=== PATIENT | male | born 1970 | race Caucasian/White ===

== ENCOUNTER 2016-05-19 11:02 | Observation (INO) | payer OTHER ==
[2016-05-19] MEDS ORDERED: Sodium Chloride 0.9% 1,000 ML PRIMARY IV ONE (11:28)
[2016-05-19] MEDS ORDERED: LORazepam 2 MG/1 ML VIAL IVP ONE (11:32)
[2016-05-19] MEDS ORDERED: Sodium Chloride 0.9% 1,000 ML, Magnesium Sulfate 2gm (Premix) 50 ML with Multivitamin I... IV ONE ×5 (11:32)
[2016-05-19] MEDS ORDERED: Sodium Chloride 0.9% 1,000 ML with Multivitamin Inj 10 ML, Thiamine Inj 100 MG, Folic A... IV ONE ×5 (11:45)
--- NOTE | 2016-05-19 11:46 | EKG ---
[address] [address] Measurements Intervals [place] Rate: 51 P: 84 MD: 174 QRS: 62 QRSD: 106 T: 59 QT: 445 QTc: 422 Interpretive Statements SINUS BRADYCARDIA INTERPRETATION BASED ON A DEFAULT AGE OF 40 YEARS No previous ECG available for comparison Electronically Signed On 05-19-16 13:45:29 MST by Jose Luis Silva MD [email or web address]
[2016-05-19] MEDS: NORMAL SALINE 10 ML SYRINGE FLUSH IVP PRN ×2 (12:00→12:12)
[2016-05-19 12:09] LABS: BASOPHILS # (AUTO) 0.03 10*3/UL; BASOPHILS % (AUTO) 0.4 % (0-1); EOSINOPHILS % (AUTO) 0.4 % (0-8); HEMATOCRIT 47.9 % (42.0-52.0); HEMOGLOBIN 17.1 g/dL (14.0-18.0); IMM GRAN % (AUTO) 0.1 % (0-5); IMM GRAN# (AUTO) 0.01 10*3/UL; LYMPHOCYTES # (AUTO) 1.55 10*3/uL; LYMPHOCYTES % (AUTO) 21.1 % (10-50); MEAN CORPUSCULAR HEMOGLOBIN 33.6 PG (27-31); MEAN CORPUSCULAR HGB CONC 35.7 g/dL (33-37); MEAN PLATELET VOLUME 9.6 FL (7.4-12.2); MONOCYTES # (AUTO) 0.45 10*3/UL (0.3-0.8); MONOCYTES % (AUTO) 6.1 % (5-15); NEUTROPHILS # (AUTO) 5.27 10*3/UL; NEUTROPHILS % (AUTO) 71.9 % (50-80); RDW COEFFICIENT OF VARIATION 14.1 % (11.5-14.5); RED BLOOD COUNT 5.09 10^6/uL (4.70-6.10); WHITE BLOOD COUNT 7.34 10^3/uL (4.8-10.8)
[2016-05-19 12:15] LABS: PLATELET MORPHOLOGY COMMENT NORMAL MORPHOLOGY (NORM)
[2016-05-19 12:18] LABS: LACTATE 1.5 MMOL/L (0.70-2.10); MAGNESIUM 2.2 mg/dL (1.6-2.4)
[2016-05-19 12:19] LABS: ASPARTATE AMINO TRANSFERASE 23 IU/L (21-57); BILIRUBIN,TOTAL 0.6 mg/dL (0.3-1.2); BLOOD UREA NITROGEN 14 mg/dL (7-22); CALCIUM 9.6 mg/dL (8.7-10.7); CHLORIDE 107 meq/L (98-112); EST GLOMERULAR FILTRATION > 60 (>60 ml/min/1.73m(2)); GLUCOSE 119 mg/dL (78-110); POTASSIUM 4.3 meq/L (3.8-5.2); SODIUM 142 meq/L (135-145); TOTAL PROTEIN 7.6 g/dL (6.1-8.0)
[2016-05-19 12:24] LABS: SERUM ALCOHOL < 10 mg/dL (0-10)
[2016-05-19 12:40] LABS: BILIRUBIN,URINE NEGATIVE (NEG); CLARITY,URINE CLEAR (CLEAR); GLUCOSE, URINE (UA) NEGATIVE (NEG); LEUKOCYTE ESTERASE ,URINE NEGATIVE (NEG); NITRATE,URINE NEGATIVE (NEG); OCCULT BLOOD,URINE MODERATE (NEG); PROTEIN,URINE NEGATIVE (NEG); UROBILINOGEN,URINE 0.2 EU/dL (0.2)
[2016-05-19 12:55] LABS: URINE SAMPLE TYPE CLEAN CATCH URINE
[2016-05-19 12:56] LABS: BACTERIA,URINE RARE; CANNABINOID SCREEN,URINE NEGATIVE (NEG); COCAINE SCREEN NEGATIVE (NEG); METHAMPHETAMINES SCREEN,URINE NEGATIVE (NEG); SQUAMOUS EPITHELIAL CELL,UR RARE; URINE SPECIFIC GRAVITY - MAN 1.005
--- NOTE | 2016-05-19 13:05 | DI ---
CT HEAD SCAN WITHOUT IV CONTRAST, 05/19/2016 11:28 AM : Clinical History: Altered level of consciousness. Previous Exam: None at this facility. Scans are obtained from the foramen magnum to the vertex without IV contrast. The 4th, 3rd, and lateral ventricles are of normal size, shape, position, and contour. There are no abnormal areas of increased or decreased density. There is no intracranial hemorrhage. Bone window evaluation is normal. The paranasal sinuses are normal. READING: Normal non contrast CT head scan for age.
--- NOTE | 2016-05-19 13:45 | PDOC ---
Neuro Symptoms / Deficit HPI - General Chief Complaint: Neurological Complaints Stated Complaint: ACUTE CONFUSION UNK ETIOLOGY Date Seen by Provider: 05/19/16 Time Seen by Provider: 11:07 Source: POSITIVE: Patient, Spouse Exam Limitations: POSITIVE: No limitations Nurse's Notes Reviewed & Considered: Yes - History of Present Illness Initial Comments: The patient is a 45-year-old male who is brought to the emergency room by his and a family friend. states that at 8 AM this morning she left her to run some errands and at that time the states that the patient appeared "perfectly fine". At 9:30 AM the patient's daughter called the patient and she felt that the patient sounded confused and would not answer questions appropriately. The patient's was contacted and she went immediately home. She found the patient to be quite confused and to be amnestic of recent events in his life. He also could not accurately give today' s date or name the president. He was very anxious and agitated and distraught. brought the patient to the emergency room. Past medical indicates that the patient smokes at least a pack of cigarettes per day and the states that the patient drinks alcohol daily, but has had nothing to drink since the day before yesterday. He is on no medications. No known neurological, cardiopulmonary, GI or , or other illnesses. He did complain of a left sided headache. Body Location Affected: REPORTS: Head, Other (Amnesia, confusion, agitation as above) Timing: REPORTS: Abrupt Duration: 1-3 hours (Onset probably 2-3 hours APIARIST) Severity: Moderate Quality: REPORTS: "Pain" (Patient does complain of some left-sided head discomfort) Context: DENIES: Insect Bite, Tick Bite, Falling Injury, Head Injury, Other Character of Deficit(s): REPORTS: General(diffuse) (Global amnesia). DENIES: Right, Left, RUE, RLE, LUE, LLE, New Weakness, Facial, Ascending, Altered Sensation, Vision Problems, Impaired Speech, Impaired Swallowing, Difficult, Unable, Decreased Ability to Walk, Decr. Ability to Stand, Falling, Weak, Off Balance, Cannot Walk, Cannot Stand, Cannot Sit, Bed-Ridden, Other Associated Symptoms: REPORTS: Headache (Left-sided), Confused, Agitated, Trouble Concentrating, Trouble Thinking, Other (Amnestic of recent events, primarily). DENIES: Fever, Chills, Sweating, Chest Pain, Neck Pain, Back Pain, Fainting, Seizure, Altered Mental Status, Disoriented, Decreased Responsiveness , Unresponsive Usual Ability to Walk/Stand: REPORTS: Walks w/o Assistance. DENIES: Cane Use, Walker Use, Walks only w/ Assistance, Stands for Transfers, Unable to Walk, Bed Ridden, Unable to Sit, Other Usual Cognition: REPORTS: Alert & Oriented x3 Similar Symptoms Previously: No Recently seen/treated/hospitalized: No Any Prior Injuries Related to Current Complaint?: No - Patient Home Medications Home Medications: Home Medications NK [No Home Medications Reported] 05/19/16 - Patient Allergies Allergies/Adverse Reactions: Allergies Allergy/AdvReac Type Severity Reaction Status Date / Time No Known Allergies Allergy Verified 05/19/16 11:15 Past Medical History - heen HEENT History: Denies History Cardiovascular History: Denies History Respiratory History: Denies History Gastrointestinal History: Denies History Genitourinary History: Denies History Endocrine History: Denies History Musculoskeletal History: Other (please comment) Prosthesis or Implant: No Additional Musculoskeletal History: LT KNEE TENDON REPAIR. LEFT INDEX FINGER AND KNUCKLE REPAIR Neurological History: Denies History Blood Disorders: Denies History Psychiatric History: Denies History Male Reproductive History: Denies History Cancer History: Denies History In Past Year Been Physically Harmed or Verbally Threatened: No History of MDRO: No Tobacco Use: Current Every Day Smoker Alcohol Use: Heavy Substance Use Type: None Previous Surgical History: Yes Type / Date of Surgery: KNEE, FINGER, KNUCKLE Anesthesia Reactions: No Significant Family History: No pertinent family hx Past Medical History Reviewed: Reviewed - No Changes ROS - Limitations ROS Limitations: Clinical Condition (Patient not able to answer many questions because of amnesia and confusion. Quite agitated.), Mental Impairment (As above ) Constitution: REPORTS: Denies Symptoms Cardiovascular: REPORTS: Denies Cardiac Symptoms Respiratory: REPORTS: Denies Resp Symptoms Neurological: REPORTS: Headache (Left-sided), Other (Confusion and amnesia) Gastrointestinal: REPORTS: Denies GI Symptoms Endocrine: REPORTS: Denies Symptoms Musculoskeletal: REPORTS: Denies MS Symptoms Genitourinary: REPORTS: Denies Symptoms Eyes: REPORTS: Denies Symptoms ENT: REPORTS: Denies Symptoms Skin: REPORTS: Denies Skin Symptoms Lympathic: REPORTS: Denies Lympathic Symptoms Immunologic: POSITIVE: Denies Symptoms Psychiatric: POSITIVE: Confusion, Anxiety Neuro Symptoms / Deficit Exam - General Appearance General Appearance: POSITIVE: Other (Patient very anxious and tearful. Appears frustrated at his inability to remember recent events. He can identify his . Confused to time and cannot recall date, president, or recent activities. ) - HEENT HEENT: POSITIVE: Head Inspection Nml, Eyes Inspection Nml, Ears Inspection Nml, Nose Inspection Nml, Oral/Dental Inspect. Nml, Pharynx Inspect. Nml, PERRL, EOMI - Pupil Size Pupil Size: 4 mm: Bilateral (PERRLA) - Neuro / Psych Higher Functions: POSITIVE: Normal Speech, Disoriented to Person, Disoriented to Place, Disoriented to Time, Withdraws to Pain. NEGATIVE: Oriented to Person , Oriented to Place, Oriented to Time, Normal Cognition, Appropriate Mood (. Anxious), Appropriate Affect (. Anxious and tearful), Speech Abnormalities, Cognition Abnormalities, Abnml Response to Command, No Response to Command, Eyes Open to Command, Slow Response to Command, Inapp Response to Command, Expressive Aphasia, Receptive Aphasia, Abnml Response to Pain, Flexor to Pain, Extensor to Pain, No Response to Pain, Dysarthria Cranial Nerves: POSITIVE: Normal As Tested, No Evidence of Acute CVA Cerebellar: POSITIVE: Normal As Tested Peripheral Exam: POSITIVE: Sensation Normal, Motor Normal, Reflexes Normal - Neck Neck: POSITIVE: Supple, Non-Tender, No Carotid Bruit - Respiratory Respiratory: POSITIVE: No Respiratory Distress, Breath Sounds Normal - Cardiovascular Cardiovascular: POSITIVE: Regular Rate & Rhythm, Heart Sounds Normal Peripheral Pulses: Radial (R): 2+, Radial (L): 2+ - Abdomen Abdomen: Soft: (All Quadrants), Normal Bowel Sounds: (All Quadrants), Denies Tenderness: (All Quadrants), No Splenomegaly: (All Quadrants), No Hepatomegaly: (All Quadrants), No Guarding: (All Quadrants), No Rebound: (All Quadrants), No Palpable Pulse: (All Quadrants), No [place]pabale Mass: (All Quadrants), No Distention: (All Quadrants), No Rigidity: (All Quadrants) - Skin Skin: POSITIVE: Intact, Normal For Race, Warm, Dry, No Rash - Extremities Extremity: Non-Tender: (All Extremities), Normal ROM: (All Extremities), Normal Inspection: (All Extremities) Neuro Symptom/Deficit Progress - Results Reviewed by me Xrays/CTs/US Reviewed by me: Yes Discussed with Radiologist: Yes Radiology Findings: CT scan of head without contrast normal Lab Results Reviewed: Yes Lab Results:: Laboratory Results 05/19/16 Range/Units 12:05 WBC 7.34 (4.8-10.8) 10^3/uL RBC 5.09 (4.70-6.10) 10^6/uL Hgb 17.1 (14.0-18.0) g/dL Hct 47.9 (42.0-52.0) % MCV 94.1 H (80-90) FL MCH 33.6 H (27-31) PG MCHC 35.7 (33-37) g/dL RDW Std Deviation 47.7 (39-50) fL RDW Coeff of Junaid 14.1 (11.5-14.5) % Plt Count 224 (140-350) 10*3/uL MPV 9.6 (7.4-12.2) FL Immature Gran % (Auto) 0.1 (0-5) % Neut % (Auto) 71.9 (50-80) % Lymph % (Auto) 21.1 (10-50) % [place] % (Auto) 6.1 (5-15) % Eos % (Auto) 0.4 (0-8) % Baso % (Auto) 0.4 (0-1) % Immature Gran # (Auto) 0.01 10*3/UL Neut # (Auto) 5.27 10*3/UL Lymph # (Auto) 1.55 10*3/uL [place] # (Auto) 0.45 (0.3-0.8) 10*3/UL Eos # (Auto) 0.03 10*3/UL Baso # (Auto) 0.03 10*3/UL WBC Morphology Comment Normal morphology (NORM) Plt Morphology Comment Normal morphology (NORM) RBC Morph Comment Normal morphology (NORM) Sodium 142 (135-145) meq/L Potassium 4.3 (3.8-5.2) meq/L Chloride 107 (98-112) meq/L Carbon Dioxide 23 (23-33) meq/L Anion Gap 12 (5-20) BUN 14 (7-22) mg/dL Creatinine 1.0 (0.70-1.50) mg/dL Estimated GFR > 60 (>60 ml/min/1.73m(2)) BUN/Creatinine Ratio 14.00 (6-20) Glucose 119 H (78-110) mg/dL Calculated Osmolality 295.0 H (267-292) mOsm/kg Lactic Acid 1.5 (0.70-2.10) MMOL/L Calcium 9.6 (8.7-10.7) mg/dL Magnesium 2.2 (1.6-2.4) mg/dL Total Bilirubin 0.6 (0.3-1.2) mg/dL AST 23 (21-57) IU/L ALT 26 (21-72) IU/L Alkaline Phosphatase 39 (38-126) IU/L Total Protein 7.6 (6.1-8.0) g/dL Albumin 4.7 (3.5-4.8) g/dL Globulin 3.0 (2.50-4.10) g/dL Albumin/Globulin Ratio 1.50 (1.3-2.0) mg/g Ur Collection Type Clean catch urine Urine Color Yellow Urine Clarity Clear (CLEAR) Urine pH 5.0 (5.0-8.5) Ur Specific [place] <=1.005 (1.005-1.030) U Specif Grav (Refrac) 1.005 Urine Protein Negative (NEG) mg/dl Urine Glucose (UA) Negative (NEG) mg/dL Urine Ketones Negative (NEG) Urine Occult Blood Moderate H (NEG) Urine Nitrate Negative (NEG) Urine Bilirubin Negative (NEG) Urine Urobilinogen 0.2 (0.2) EU/dL Ur Leukocyte Esterase Negative (NEG) Urine RBC 1-3 (NONE) /hpf Urine WBC 1-3 (NONE) Ur Squamous Epith Cells Rare (NONE) Ur Renal Epithelial Cell None (NONE) Urine Crystals None Urine Bacteria Rare (NONE) Urine Casts None (NONE) Urine Mucus None (NONE) Urine Trichomonas None (NONE) Urine Yeast None (NONE) Ur Culture Indicated? Culture not set Urine Opiates Screen Negative (NEG) Ur Buprenorphine Negative (NEG) Ur Oxycodone Screen Negative (NEG) Urine Methadone Screen Negative (NEG) Ur Propoxyphene Screen Negative (NEG) Barbiturate Screen Negative (NEG) U Tricyclic Antidepress Negative (NEG) Phencyclidine Screen Negative (NEG) Amphetamines Screen Negative (NEG) U Methamphetamines Scrn Negative (NEG) Benzodiazepines Screen Negative (NEG) Cocaine Screen Negative (NEG) U Marijuana (THC) Screen Negative (NEG) Serum Alcohol < 10 (0-10) mg/dL EKG Interpreted/Reviewed By Me:: Yes (normal except for sinus bradycardia of 51/ m) EKG Interpretation:: POSITIVE: Normal Sinus Rhythm, Normal Intervals, Normal [place], Normal QRS, Normal ST/T. NEGATIVE: Normal Rate (Sinus bradycardia, 51/m) - Patient's Progress Pain Medication Addressed: POSITIVE: Yes (Tylenol 1 g by mouth given for headache) School/Work Release Addressed: POSITIVE: Not Applicable Re-Examine Time:: 12:45 Re-Examine Comment: Patient given 2 mg of Ativan IV and he was started on a banana bag of 1 L normal saline, 2 g magnesium sulfate, 100 mg thiamine and 1 mg of folic acid. At time of reevaluation patient is much better. He is essentially alert and oriented and his amnesia seems to have largely resolved. His headache is less. He is not anxious at this time. Discussed diagnosis of transient global amnesia with some possible alcohol withdrawal. Admission recommended. Status: POSITIVE: Improved, Re-Examined, Pain Relieved Antibiotics Given: No CVA/Syncope Quality Measure Initiative: POSITIVE: EKG - Consult Consult (If Yes, Name of Consulting MD & Time Called): Yes (Dr. Blanton, hospitalist , 1300) Consulting MD will see pt:: POSITIVE: [place] Admit Patient Care Time - Estimated PCT Patient Care Time (In Minutes): 55 Vital Signs - Recent Vital Signs Vital Signs: Vital Signs (Last 8 hours) Temp Pulse Resp BP Pulse Ox 05/19/16 11:05 96.8 F 68 16 146/99 98 - VS Reviewed Vital Signs Reviewed: Yes Discharge Clinical Impression: Transient global amnesia, Alcohol abuse Discharge Disposition: Admit to Inpatient Condition: Serious Date Decision to Admit to Inpatient: 05/19/16 Time Decision to Admit to Inpatient: 12:50
[2016-05-19] MEDS ORDERED: NORMAL SALINE 10 ML SYRINGE FLUSH IVP PRN (13:56)
[2016-05-19] MEDS: ACETAMINOPHEN 500 MG TABLET PO ONE ×2 (14:23→15:18)
--- NOTE | 2016-05-19 15:21 | PDOC ---
History and Physical - History of Present Illness Date and Time of Service: 05/19/2016, 1515 Chief Complaint: I can't remember History of Present Illness: This very pleasant 45 year male who was found by his to be confused and altered. He is brought in for evaluation to the emergency room. A head CT scan was negative for any acute bleeding. The patient does not had anything like this happen before and he states to me that the last thing he can remember actually occurred Tuesday when he was working with one of his relatives on a project. He states that he was in the garage when his found him today. He thought that he was working on that project. He reportedly drinks about a sixpack of beer or more per day per his history and has never had any alcohol withdrawal problems. It was no loss of bowel or bladder and no weakness of muscle strength or sensation differences on one side of the body or the other. No evidence of her reports of slurred speech. He does have a family history of stroke. He smokes cigars daily. EKG was revealing for sinus bradycardia but was otherwise normal. He denied any other symptoms associated with this presentation, other than a headache which happened on the left side and seemed to migrate over the right side but is now gone. He has not been able to regain any memory through this past Tuesday, but seems to be feeling a little better now. He had questions about hematuria in his urine as he had a moderate amount of blood on his urinalysis. He apparently had the same problem 2 years ago after being kicked by a bull. 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 Past Medical History Medical History: None Surgical History: Had some tendons repaired. Pertinent Family History: Significant for stroke and for coronary artery disease. His mother apparently suffered many TIAs. 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 Smokes cigars daily and drinks about a sixpack of beer or more daily. Tobacco Use: Current Every Day Smoker Do you dip or chew tobacco: Yes Substance Use Type: None Alcohol Use: Heavy Medication / Allergies Home Medications: Home Medications Medication Instructions Recorded Confirmed Type NK [No Home Medications Reported] 05/19/16 05/19/16 History Allergies/Adverse Reactions: Allergies Allergy/AdvReac Type Severity Reaction Status Date / Time No Known Allergies Allergy Verified 05/19/16 11:15 Review of Systems - Constitutional Constitutional: REPORTS: Negative System Review - Respiratory Respiratory: REPORTS: Negative System Review - Cardiovascular Cardiovascular: REPORTS: Negative System Review - Gastrointestinal Gastrointestinal / Abdominal: REPORTS: Negative System Review - Genitourinary Genitourinary: REPORTS: Hematuria (2 years ago attributed to an injury in which he was kicked by a bull. Had moderate hematuria on urinalysis today.) - Musculoskeletal Musculoskeletal: REPORTS: Joint Pain - Shoulders - Hematlogic / Lymphatic Hematologic / Lymphatic: REPORTS: Negative System Review - Neurological Neurologic: REPORTS: Headache (Occasionally. He states that his often tells him when he has a headache. He denies migraine headaches.) - Psychiatric Psychiatric: DENIES: Anhedonia, Anxiety, Depressed, Hopelessness, Hospitalization, Negative System Review, Other, Panic, Sadness, See HPI, Suicidality, Tearfullness Exam - Vitals Vital Signs: Vital Signs Temperature 97.6 F Temperature Source Temporal Artery Scan Pulse Rate [Pulse Oximeter] 67 Pulse Rate 66 Respiratory Rate 16 Blood Pressure [Left Arm] 130/86 Blood Pressure [Right Arm] 146/99 Blood Pressure 137/93 Pulse Ox 96 Oxygen Delivery Method Room Air Height 6 ft 2 in Weight 170 lb 11.2 oz - General General Appearance: POSITIVE: No Acute Distress, Cooperative - Head Head Exam: POSITIVE: Normal Inspection, Normocephalic, Atraumatic - Eye Eye Exam: POSITIVE: No Scleral Icterus - ENT ENT Exam: POSITIVE: Mucous Membranes Moist - Neck Neck Exam: POSITIVE: Normal Inspection, No Tenderness, No Thyromegaly - Respiratory Respiratory Exam: POSITIVE: Clear to Auscultation - Bilaterally, Breathing Non Labored, Normal to Percussion and Palpation - Cardiovascular Cardiovascular Exam: POSITIVE: RRR, No Murmur, No Clicks, No Gallops, No Rubs, No JVD - GI/Abdominal GI/Abdominal Exam: POSITIVE: Normal Bowel Sounds, Non Tender, Non Distended, Soft - Rectal Rectal Exam: POSITIVE: Deferred - External Exam: POSITIVE: Deferred Exam: POSITIVE: Deferred - Extremities Extremities Exam: POSITIVE: No Clubbing Present, No Edema Present, No Cyanosis Present Additional Extremities Exam Details: Palpation of the shoulder does not cause any pain. - Back Back Exam: POSITIVE: Normal Inspection, No CVA Tenderness - Neurological Neurological Exam: POSITIVE: Alert, Oriented x 3, No Facial Droop, Speech Intact / Clear, Moves All Extremities Equally - Psychiatric Psychiatric Exam: POSITIVE: Normal Affect, Normal Mood - Integumentary Integumentary Exam: POSITIVE: Normal Color, Warm, Dry, Intact Results - Labs CBC and BMP: 05/19/16 12:05 05/19/16 12:05 Labs - Last 24 Hours: Laboratory Results 05/19/16 Range/Units 12:05 WBC 7.34 (4.8-10.8) 10^3/uL RBC 5.09 (4.70-6.10) 10^6/uL Hgb 17.1 (14.0-18.0) g/dL Hct 47.9 (42.0-52.0) % MCV 94.1 H (80-90) FL MCH 33.6 H (27-31) PG MCHC 35.7 (33-37) g/dL RDW Std Deviation 47.7 (39-50) fL RDW Coeff of Junaid 14.1 (11.5-14.5) % Plt Count 224 (140-350) 10*3/uL MPV 9.6 (7.4-12.2) FL Immature Gran % (Auto) 0.1 (0-5) % Neut % (Auto) 71.9 (50-80) % Lymph % (Auto) 21.1 (10-50) % [place] % (Auto) 6.1 (5-15) % Eos % (Auto) 0.4 (0-8) % Baso % (Auto) 0.4 (0-1) % Immature Gran # (Auto) 0.01 10*3/UL Neut # (Auto) 5.27 10*3/UL Lymph # (Auto) 1.55 10*3/uL [place] # (Auto) 0.45 (0.3-0.8) 10*3/UL Eos # (Auto) 0.03 10*3/UL Baso # (Auto) 0.03 10*3/UL WBC Morphology Comment Normal morphology (NORM) Plt Morphology Comment Normal morphology (NORM) RBC Morph Comment Normal morphology (NORM) Sodium 142 (135-145) meq/L Potassium 4.3 (3.8-5.2) meq/L Chloride 107 (98-112) meq/L Carbon Dioxide 23 (23-33) meq/L Anion Gap 12 (5-20) BUN 14 (7-22) mg/dL Creatinine 1.0 (0.70-1.50) mg/dL Estimated GFR > 60 (>60 ml/min/1.73m(2)) BUN/Creatinine Ratio 14.00 (6-20) Glucose 119 H (78-110) mg/dL Calculated Osmolality 295.0 H (267-292) mOsm/kg Lactic Acid 1.5 (0.70-2.10) MMOL/L Calcium 9.6 (8.7-10.7) mg/dL Magnesium 2.2 (1.6-2.4) mg/dL Total Bilirubin 0.6 (0.3-1.2) mg/dL AST 23 (21-57) IU/L ALT 26 (21-72) IU/L Alkaline Phosphatase 39 (38-126) IU/L Total Protein 7.6 (6.1-8.0) g/dL Albumin 4.7 (3.5-4.8) g/dL Globulin 3.0 (2.50-4.10) g/dL Albumin/Globulin Ratio 1.50 (1.3-2.0) mg/g Ur Collection Type Clean catch urine Urine Color Yellow Urine Clarity Clear (CLEAR) Urine pH 5.0 (5.0-8.5) Ur Specific [place] <=1.005 (1.005-1.030) U Specif Grav (Refrac) 1.005 Urine Protein Negative (NEG) mg/dl Urine Glucose (UA) Negative (NEG) mg/dL Urine Ketones Negative (NEG) Urine Occult Blood Moderate H (NEG) Urine Nitrate Negative (NEG) Urine Bilirubin Negative (NEG) Urine Urobilinogen 0.2 (0.2) EU/dL Ur Leukocyte Esterase Negative (NEG) Urine RBC 1-3 (NONE) /hpf Urine WBC 1-3 (NONE) Ur Squamous Epith Cells Rare (NONE) Ur Renal Epithelial Cell None (NONE) Urine Crystals None Urine Bacteria Rare (NONE) Urine Casts None (NONE) Urine Mucus None (NONE) Urine Trichomonas None (NONE) Urine Yeast None (NONE) Ur Culture Indicated? Culture not set Urine Opiates Screen Negative (NEG) Ur Buprenorphine Negative (NEG) Ur Oxycodone Screen Negative (NEG) Urine Methadone Screen Negative (NEG) Ur Propoxyphene Screen Negative (NEG) Barbiturate Screen Negative (NEG) U Tricyclic Antidepress Negative (NEG) Phencyclidine Screen Negative (NEG) Amphetamines Screen Negative (NEG) U Methamphetamines Scrn Negative (NEG) Benzodiazepines Screen Negative (NEG) Cocaine Screen Negative (NEG) U Marijuana (THC) Screen Negative (NEG) Serum Alcohol < 10 (0-10) mg/dL - EKG Data -: EKG Interpreted by Me Rate: Bradycardia EKG Shows Normal: Sinus Rhythm Assessment and Plan - Patient Problems (1) Transient global amnesia Current Visit: Yes Status: Acute (2) Hematuria Current Visit: Yes Status: Acute - Assessment / Plan Additional Assessment/Plan Details: Admit the patient for observation. There is significant culture see around transient global amnesia as to whether or not there could be association with increased risk of stroke, but I think it prudent to do a transient ischemic attack workup, complete with MRI of the brain and MRA of the head and neck, and echocardiogram, check thyroid status, and cholesterol status. If anything found in the above, treat. Start an aspirin today. The patient on my exam, does not appear to be in alcohol withdrawal. That certainly a risk, but his symptoms are quite consistent with transient global amnesia in that he's had memory loss since at least Tuesday. There were no reported seizures and no symptoms of alcohol withdrawal seizure noted today. He is not agitated. Given that the patient smokes cigars daily, start nicotine replacement here, but I also think with the moderate hematuria he should have cystoscopy in the office with a urologist to make sure there is no evidence of bladder cancer. We will schedule an appointment for the patient. I discussed above plan with the patient and he agreed. His was not available for discussion at the time of this history and physical, but I will try to fill her in when we are able to discuss further.
[2016-05-19] MEDS ORDERED: NICOTINE 2 MG GUM BUCCAL PRN (18:46)
[2016-05-19] MEDS ORDERED: LORazepam Inj(ETOH withdrawal) 2 MG/ML VIAL IVP PRN (20:23)
[2016-05-20 06:49] VITALS: RESP 18
--- NOTE | 2016-05-20 08:41 | DI ---
XR EYE FOREIGN BODY,05/20/2016 7:51 AM: Clinical History: Screening for foreign body. Previous Exam: None at this facility. Findings: AP and lateral views of the orbits are obtained, and demonstrate normal paranasal sinuses. There is n o evidence of metallic foreign body. Impression: No evidence of intraorbital metallic foreign body.
--- NOTE | 2016-05-20 08:48 | DI ---
MRI MRA HEAD W/O CN,05/20/2016 7:00 AM: Clinical History: Transient global amnesia. Previous Exam: None at this facility. Findings: Multiplanar MR images are obtained through the brain following a 3-D [id number] protocol, and dem onstrates a normal [place]. The basilar artery is intact. The vertebral arteries are not well seen. The right posterior communicating artery is diminutive. The distal internal carotid arteries are normal. Middle cerebral arteries are also normal. The anteri or cerebral arteries are unremarkable. There is no evidence of aneurysmal dilation of the anterior co mmunicating artery. The left vertebral artery is dominant and the right vertebral artery is diminutive. Impression: Normal MRA [place].
[2016-05-20] MEDS ORDERED: ASPIRIN 325 MG TABLET PO SCH (09:00)
--- NOTE | 2016-05-20 09:08 | DI ---
MRI BRAIN W/O CN,05/20/2016 7:00 AM: Clinical History: Transient global amnesia. Previous Exam: None at this facility. 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 The ventricles and other CSF containing spaces are normal and symmetric. There is no mass, hemorrhage or midline shift. The internal auditory canals are normal and symmetric. The major vascular flow voids are unremarkable. There is no abnormal FLAIR signal. The midline structures are unremarkable. 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 The sellar and suprasellar region are unremarkable. There is no evidence of Chiari malformation. The upper cervical spine is unremarkable. The intraorbital structures are unremarkable. There is no abnormally restricted diffusion. Impression: No acute intracranial pathology.
--- NOTE | 2016-05-20 09:23 | DI ---
MRI MRA NECK W/O CN,05/20/2016 7:00 AM: Clinical History: Transient global amnesia. Previous Exam: None at this facility. Findings: Multiplanar MR images are obtained through the neck following a 2-D [id number], and demonstrate s ome mild low signal within the left carotid bulb. There is also some mild low signal within the right carotid bulb. The vertebral arteries are unremarkable. The left vertebral artery is dominant. There is approximately 50% stenosis of both carotid bulbs. The internal carotid arteries demonstrate normal course and caliber. There is a normal three-vessel arch. Impression: Approximately 50% stenosis of the carotid bulbs bilaterally.
[2016-05-20 10:26] LABS: FREE T4 (FREE THYROXINE) 1.14 ng/dL (0.93-1.71)
[2016-05-20 11:23] VITALS: TEMP 97.2
--- NOTE | 2016-05-20 12:01 | DCSUMMARY ---
Hospitalization Summary Admit Date: 05/19/16 Discharge Date: 05/20/16 Primary Diagnosis:: carotid artery disease and transient global amnesia Hospital Course: This very pleasant but cantankerous 45-year-old male who presented here yesterday had symptoms of altered mental status that had come on transiently. He did not have any other symptoms of stroke and no focal findings otherwise. He was admitted for evaluation and we did an MRI of the head which showed no evidence of stroke. Head CT scan was negative for acute bleed. An MRA of the head was negative. An MRA of the neck was positive for 50% carotid artery disease bilaterally. The patient does smoke and he does drink alcohol. Ultimately he had one episode earlier this month that was very similar but not as long lasting. Because of this, we are somewhat concerned that there could be an underlying seizure as well, and have arranged a referral to a neurologist with a question of "does this patient have seizure?" This is the reason for referral with [facility] The patient also had microscopic hematuria in his urine. 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 Given his smoking history, I felt it would be best to get him set up with a urologist for an office cystoscopy to evaluate further for potential bladder cancer. Given his alcohol use, which is quite significant at a 6 pack or so per day, his MCV and MCH were both elevated so I did vitamin B12, folate levels, and a vitamin D level. His vitamin D was low and he'll replace that outside of the hospital. His vitamin B12 was low and I recommended a B complex vitamin daily. I will place him on a full strength aspirin daily. I recommended that he have cholesterol screening done at his earliest convenience and we have arranged for primary care follow-up. Given the constellation of findings and plan above, the patient and his agree that this seems reasonable and the patient would like to go home. He is reported to me that he wants to go smoke. Today, no completes of chest pain, shortness breath, nausea or vomiting, muscle weakness, or memory problems. Assessment and Plan: 1. As per discharge assessments noted 2. Disposition: Patient is discharged home. 3. Condition on discharge, stable and improved. 4. Diet: regular diet (low-fat/low-cholesterol) I recommended that he do a significant increase in his vegetable intake 5. Activities: resume normal activities 6. Follow-Up: 1. Primary care provider in 3 weeks 2. Neurology in the next 1-2 weeks 3. Urology as scheduled 7. Medications at the Time of Discharge: Home Medications Medication Instructions Recorded Confirmed Type Aspirin 325 mg PO DAILY #30 tab 05/20/16 Rx Vitamin B complex and vitamin D as well 8. Time, care, counseling and coordination of care for this discharge is greater than 30 minutes. Exam - Vitals Vital Signs: Vital Signs Temperature 97.2 F Temperature Source Temporal Artery Scan Pulse Rate [Pulse Oximeter] 58 Pulse Rate 60 Respiratory Rate 18 Blood Pressure [Left Arm] 117/86 Blood Pressure [Right Arm] 146/99 Blood Pressure 117/89 Pulse Ox 96 Oxygen Delivery Method Room Air Height 6 ft 2 in Weight 173 lb 9.6 oz - General General Appearance: POSITIVE: No Acute Distress, Cooperative - Head Head Exam: POSITIVE: Atraumatic - Eye Eye Exam: POSITIVE: No Scleral Icterus - Respiratory Respiratory Exam: POSITIVE: Clear to Auscultation - Bilaterally, Breathing Non Labored - Cardiovascular Cardiovascular Exam: POSITIVE: RRR, No Murmur, No Clicks, No Gallops, No Rubs, No JVD - GI/Abdominal GI/Abdominal Exam: POSITIVE: Normal Bowel Sounds, Non Tender, Non Distended, Soft - Extremities Extremities Exam: POSITIVE: No Clubbing Present, No Edema Present, No Cyanosis Present - Neurological Neurological Exam: POSITIVE: Alert, Oriented x 3, Normal Gait, No Facial Droop, Speech Intact / Clear, Moves All Extremities Equally Data Perinent Studies: Laboratory Results 05/19/16 05/19/16 05/20/16 Range/Units 12:05 19:10 10:02 WBC 7.34 (4.8-10.8) 10^3/uL RBC 5.09 (4.70-6.10) 10^6/uL Hgb 17.1 (14.0-18.0) g/dL Hct 47.9 (42.0-52.0) % MCV 94.1 H (80-90) FL MCH 33.6 H (27-31) PG MCHC 35.7 (33-37) g/dL RDW Std Deviation 47.7 (39-50) fL RDW Coeff of Junaid 14.1 (11.5-14.5) % Plt Count 224 (140-350) 10*3/uL MPV 9.6 (7.4-12.2) FL Immature Gran % (Auto) 0.1 (0-5) % Neut % (Auto) 71.9 (50-80) % Lymph % (Auto) 21.1 (10-50) % [place]oux % (Auto) 6.1 (5-15) % Eos % (Auto) 0.4 (0-8) % Baso % (Auto) 0.4 (0-1) % Immature Gran # (Auto) 0.01 10*3/UL Neut # (Auto) 5.27 10*3/UL Lymph # (Auto) 1.55 10*3/uL [place]oux # (Auto) 0.45 (0.3-0.8) 10*3/UL Eos # (Auto) 0.03 10*3/UL Baso # (Auto) 0.03 10*3/UL WBC Morphology Comment Normal morphology (NORM) Plt Morphology Comment Normal morphology (NORM) RBC Morph Comment Normal morphology (NORM) Sodium 142 (135-145) meq/L Potassium 4.3 (3.8-5.2) meq/L Chloride 107 (98-112) meq/L Carbon Dioxide 23 (23-33) meq/L Anion Gap 12 (5-20) BUN 14 (7-22) mg/dL Creatinine 1.0 (0.70-1.50) mg/dL Estimated GFR > 60 (>60 ml/min/1.73m(2)) BUN/Creatinine Ratio 14.00 (6-20) Glucose 119 H (78-110) mg/dL Calculated Osmolality 295.0 H (267-292) mOsm/kg Lactic Acid 1.5 (0.70-2.10) MMOL/L Calcium 9.6 (8.7-10.7) mg/dL Magnesium 2.2 (1.6-2.4) mg/dL Total Bilirubin 0.6 (0.3-1.2) mg/dL AST 23 (21-57) IU/L ALT 26 (21-72) IU/L Alkaline Phosphatase 39 (38-126) IU/L Total Protein 7.6 (6.1-8.0) g/dL Albumin 4.7 (3.5-4.8) g/dL Globulin 3.0 (2.50-4.10) g/dL Albumin/Globulin Ratio 1.50 (1.3-2.0) mg/g Vitamin B12 421 (239-931) pg/mL Vitamin D 25-Hydroxy 26.3 L (30-100) NG/ML Serum Folate > 20.0 H (2.76-20.0) NG/ML TSH 2.27 (0.2700-4.2000) uIU/mL Free T4 1.14 (0.93-1.71) ng/dL Ur Collection Type Clean catch urine Urine Color Yellow Urine Clarity Clear (CLEAR) Urine pH 5.0 (5.0-8.5) Ur Specific Vaughn <=1.005 (1.005-1.030) U Specif Grav (Refrac) 1.005 Urine Protein Negative (NEG) mg/dl Urine Glucose (UA) Negative (NEG) mg/dL Urine Ketones Negative (NEG) Urine Occult Blood Moderate H (NEG) Urine Nitrate Negative (NEG) Urine Bilirubin Negative (NEG) Urine Urobilinogen 0.2 (0.2) EU/dL Ur Leukocyte Esterase Negative (NEG) Urine RBC 1-3 (NONE) /hpf Urine WBC 1-3 (NONE) Ur Squamous Epith Cells Rare (NONE) Ur Renal Epithelial Cell None (NONE) Urine Crystals None Urine Bacteria Rare (NONE) Urine Casts None (NONE) Urine Mucus None (NONE) Urine Trichomonas None (NONE) Urine Yeast None (NONE) Ur Culture Indicated? Culture not set Urine Opiates Screen Negative (NEG) Ur Buprenorphine Negative (NEG) Ur Oxycodone Screen Negative (NEG) Urine Methadone Screen Negative (NEG) Ur Propoxyphene Screen Negative (NEG) Barbiturate Screen Negative (NEG) U Tricyclic Antidepress Negative (NEG) Phencyclidine Screen Negative (NEG) Amphetamines Screen Negative (NEG) U Methamphetamines Scrn Negative (NEG) Benzodiazepines Screen Negative (NEG) Cocaine Screen Negative (NEG) U Marijuana (THC) Screen Negative (NEG) Serum Alcohol < 10 (0-10) mg/dL Patient Problems - Patient Problem List (1) Carotid artery disease Current Visit: Yes Status: Acute Qualifiers: Laterality: bilateral Qualified Description: Bilateral carotid artery disease Qualifier Code(s): (I77.9) Disorder of arteries and arterioles, unspecified (2) Transient global amnesia Current Visit: Yes Status: Acute (3) Hematuria Current Visit: Yes Status: Acute (4) Alcohol abuse Current Visit: Yes Status: Acute (5) Tobacco abuse Current Visit: Yes Status: Acute
== END 2016-05-20 12:45 | disposition home or self-care (01) ==
LOC: ER 11:02 → MED/SURG 13:40
PROVIDERS: ADMIT Family Medicine; ATTEND Family Medicine
DX: G45.4 Transient global amnesia (principal); I77.89 Other specified disorders of arteries and arterioles; R31.9 Hematuria, unspecified; F10.10 Alcohol abuse, uncomplicated; Z72.0 Tobacco use
CPT/HCPCS: 36415; 70030; 70450; 70544; 70547; 70551; 80053; 80305; 80320; 81001; 81003; 82306; 82607; 82746; 83605; 83735; 84439; 84443; 85025; 93005; 93010; 93308; 94761 ×2; 96365; 96375; 99284 ×2; J3475; J2060; J3411; J7030

== ENCOUNTER → 2016-06-10 | Outpatient (CLI) | payer OTHER ==
--- NOTE | 2016-06-10 16:29 | DI ---
DUPLEX COLOR DOPPLER CAROTID ULTRASOUND, 06/10/2016 2:38 PM: Clinical History: Transient global amnesia. Previous Exam: None at this facility. Comparison is made with the MR angiogram of the carotid arterie s from 05/20/2016. Technique: 2D real time imaging is supplemented with duplex color doppler ultrasound imaging. RIGHT CAROTID ARTERY: 2D real time imaging of the right carotid system shows normal appearance of the right common carotid artery and the external and internal carotid arteries. Noncalcified plaque is present on the posterio r portion of the carotid bulb. Peak systolic velocities through the right common carotid, the externa l carotid, and the internal carotid are 135 cm/s, 103 cm/s, and 105 cm/s, respectively. The value for the common carotid artery corresponds to a diameter stenosis of 50-74%, but much closer to 50%. The values for the external and internal carotid arteries correspond to diameter stenoses of 0-49%. LEFT CAROTID ARTERY: 2D real time imaging of the left carotid system shows a normal appearance of the left common carotid artery and the external and internal carotid arteries. Noncalcified plaque is present on the posterio r portion of the carotid bulb. Peak systolic velocities through the left common carotid, the external carotid, and the internal carotid are 125 cm/s, 76 cm/s, and 83 cm/s, respectively. The value for th e common carotid artery corresponds to a diameter stenosis of 50-74%, but much closer to 50%. The evaristo ues for the external and internal carotid arteries correspond to diameter stenoses of 0-49%. VERTEBRAL ARTERIES: There is antegrade flow through both vertebral arteries Cardiac rhythm is regular. Peak systolic [place] through the visualized portions of the right and left vertebral arteries are 55 cm/s and 57 cm /s, respectively. These values correspond to diameter stenoses between 0-49%. Readin. There is no hemodynamically significant stenosis of either carotid system. The values for the susan meter stenoses of the common carotid arteries in the location of the plaques in the carotid bulbs are concordant with the findings on the MR angiogram of the carotid arteries. 2. There is antegrade flow through both vertebral arteries. Cardiac rhythm is regular.
== END ==
LOC: US 14:37
PROVIDERS: ATTEND Internal Medicine
DX: G45.4 Transient global amnesia (principal)
CPT/HCPCS: 93880